=== PATIENT | male | born 1995 | race American Indian/Alaskan Native ===

== ENCOUNTER 2018-03-01 07:24 | Emergency (ER) | payer SELFPAY ==
[2018-03-01 08:00] VITALS: BP 151/97
[2018-03-01] MEDS ORDERED: DECADRON IM ONE (08:30)
[2018-03-01] MEDS ORDERED: TRIMOX PO ONE (08:30)
[2018-03-01] MEDS ORDERED: MOTRIN PO ONE (08:30)
--- NOTE | 2018-03-01 08:33 | Emergency Department Report ---
Minor Respiratory - HPI Chief Complaint: Sore Throat Stated Complaint: STREP THROAT Time Seen by Provider: 03/01/18 08:30 Duration: 3 Days Pain Location: Throat Severity: moderate Minor Respiratory: Yes Sore Throat, No Rhinorrhea, No Able to Tolerate Fluids, No Ear Pain, No Cough, No Sick Contacts, No Hemoptysis, No Chest Pain, No Shortness of Breath, No Fever ED Review of Systems ROS: Stated complaint: STREP THROAT Other details as noted in HPI Comment: All other systems reviewed and negative Constitutional: denies: chills, fever Eyes: denies: eye pain ENT: throat pain. denies: ear pain, dental pain, hearing loss, epistaxis Respiratory: denies: cough Cardiovascular: denies: chest pain, palpitations Endocrine: denies: excessive sweating Gastrointestinal: denies: abdominal pain, nausea, vomiting Genitourinary: denies: urgency, dysuria Musculoskeletal: denies: back pain Skin: denies: rash, lesions Neurological: denies: headache, weakness Psychiatric: denies: anxiety, depression Hematological/Lymphatic: denies: easy bleeding ED Past Medical Hx - Past Medical History Previous Medical History?: No Hx Headaches / Migraines: Yes - Surgical History Past Surgical History?: No - Social History Smoking Status: Current Every Day Smoker - Medications Home Medications: Home Medications Medication Instructions Recorded Confirmed Last Taken Type Amoxicillin 500 mg PO BID #20 capsule 03/01/18 Unknown Rx Minor Respiratory Exam - Exam General: Vital signs noted. No distress. Alert and acting appropriately. HEENT: Yes Pharyngeal Erythema, Yes Pharyngeal Exudates, Yes Moist Mucous Membranes, No Rhinorrhea, No Conjuctival Injection, No Frontal Tenderness, No Maxillary Tenderness Ear: Neither TM Bulge, Neither TM Erythema, Neither EAC Pain, Neither EAC Discharge Neck: Yes Supple, No Adenopathy Lungs: Yes Good Air Exchange, No Wheezes, No Ronchi, No Stridor, No Cough, No Labored Respirations, No Retractions, No Use of Accessory Muscles, No Other Abnormal Lung Sounds Heart: Yes Regular, No Murmur Abdomen: No Tenderness, No Peritoneal Signs, No Normal Bowel Sounds Skin: No Rash, No Edema Neurologic: Alert and oriented, no deficits. Musculoskeletal: Unremarkable. ED Course Vital Signs 03/01/18 07:56 Temperature 98.8 F Pulse Rate 73 Respiratory 18 Rate Blood Pressure 151/97 O2 Sat by Pulse 99 Oximetry - Reevaluation(s) Reevaluation #1: 03/01/18 08:35 TAKING PO CONTROLLING SECRETIONS NO FEVER MEDICATED ED Medical Decision Making - Medical Decision Making NON ILL NON TOXIC OTHERWISE HEALTHY - Differential Diagnosis EXUDATIVE V STREP V VIRAL PHARYNGITIS Critical care attestation.: If time is entered above; I have spent that time in minutes in the direct care of this critically ill patient, excluding procedure time. ED Disposition Clinical Impression: Exudative pharyngitis, Elevated blood pressure reading Disposition: TO HOME OR SELFCARE Is pt being admited?: No Does the pt Need Aspirin: No Condition: Stable Instructions: Pharyngitis (ED) Additional Instructions: GOOD HANDWASHING MEDS UNTIL GONE MOTRIN OR TYLENOL FOR PAIN OR FEVER HYDRATE WELL MONITOR YOUR BLOOD PRESSURE Prescriptions: Amoxicillin 500 mg PO BID #20 capsule Time of Disposition: 08:32
== END 2018-03-01 09:42 | disposition home or self-care (01) ==
LOC: ED 07:24
DX: J02.9 Acute pharyngitis, unspecified (principal); R03.0 Elevated blood-pressure reading, without diagnosis of hypertension; G43.909 Migraine, unspecified, not intractable, without status migrainosus; F17.200 Nicotine dependence, unspecified, uncomplicated
CPT/HCPCS: 96372; 99282; J1100